=== PATIENT | female | born 1995 | race Two or more races ===

== ENCOUNTER 2017-05-30 21:53 | Emergency (ER) | payer OTHER ==
[~2017-05-30] VITALS: Ht 172.7 cm; Wt 74.8 kg
[2017-05-30 23:40] LABS: *BILIRUBIN,URIN NEGATIVE (NEGATIVE); *BLOOD, URINE NEGATIVE (NEGATIVE); *CLARITY,URINE CLEAR (CLEAR); *COLOR,URINE YELLOW (YELLOW); *KETONES,URINE TRACE (NEGATIVE); *PROTEIN,URINE NEGATIVE (NEGATIVE); *UROBILINOGEN,URINE 0.2 E.U./dl (NORMAL); LEUKOCYTE ESTERASE ,URINE 1+ (NEGATIVE); NITRITE, URINE NEGATIVE (NEGATIVE); PH,URINE 5.5 (5.0-8.0); UGLUCOSE NEGATIVE (NEGATIVE)
[2017-05-30 23:57] LABS: BACTERIA,URINE FEW /HPF (NONE SEEN); RBC,URINE 0-3 /HPF (0-3); SQUAMOUS EPITHELIAL CELL,UR MODERATE /HPF (NONE SEEN)
[2017-05-30 23:58] LABS: MUCUS,URINE FEW /LPF (0-FEW)
[2017-05-31 00:02] LABS: *URINE HCG, QUAL NEGATIVE (NEGATIVE)
--- NOTE | 2017-05-31 00:16 | NUR ---
Patient discharged to home in stable conditon. Written and verbal after care instructions given. Patient verbalizes understanding of instructions.
== END 2017-05-31 00:17 | disposition home or self-care (01) ==
LOC: ER 21:53
DX: N39.0 Urinary tract infection, site not specified (principal)
CPT/HCPCS: 84703; A4663; J7030